=== PATIENT | female | born 1990 | race Caucasian/White ===

== ENCOUNTER 2018-11-26 23:18 | Emergency (ER) | payer OTHER ==
[~2018-11-26] VITALS: Ht 162.6 cm; Wt 69.2 kg
[~2018-11-26 23:18] MED LIST: NAPR-985 PO
[2018-11-26 23:30] VITALS: Ht 162.6 cm; Wt 69.2 kg
--- NOTE | 2018-11-27 01:40 | ERD ---
ER Documentation Chief Complaint Chief Complaint C/O RT KNEE PAIN S/P FALL X3 DAYS AGO HPI This is a previously healthy 28-year-old female presenting to the emergency department complaining of right knee pain which is moderate to severe and worse with movement for the past 3 days after fall. She states she twisted her right leg causing her to fall on the right knee. She denies any head injury or loss of consciousness. She took no medication for relief of symptoms. ROS All systems reviewed and are negative except as per history of present illness. Medications Home Meds Active Scripts Naproxen* (Naprosyn*) 500 Mg Tablet, 500 MG PO BID PRN for PAIN AND/OR INFLAMMATION, #30 TAB Prov:RAYMON GOMEZ PA-C 11/27/18 Allergies Allergies: Coded Allergies: No Known Allergy (Unverified , 11/26/18) PMhx/Soc Medical and Surgical Hx: pt denies Medical Hx, pt denies Surgical Hx Hx Alcohol Use: No Hx Substance Use: No Hx Tobacco Use: No Smoking Status: Never smoker FmHx Family History: No diabetes Physical Exam Vitals Vital Signs Date Temp Pulse Resp B/P (MAP) Pulse Ox O2 O2 Flow FiO2 Time Delivery Rate 11/26/18 98.0 79 19 145/68 99 23:30 (93) Physical Exam Const: No acute distress Head: Atraumatic Eyes: Normal Conjunctiva ENT: Normal External Ears, Nose and Mouth. Neck: Full range of motion. No meningismus. Resp: No respiratory distress. Skin: No petechiae or rashes Back: No midline or flank tenderness Ext: There is full range of motion of the right knee. No tenderness palpation of the right knee. No obvious joint effusion. No erythema or warmth. Neur: Awake and alert Psych: Normal Mood and Affect Procedures/MDM 28-year-old female presenting to the emergency department complaining of right knee pain after injury. Physical examination and x-ray showed no evidence of fracture or significant ligamental or tendon injury. Patient was advised to follow-up with orthopedic physician within 24 to 48 hours for further testing and treatment if required. Patient is otherwise stable for discharge and close follow-up with her primary care physician. She was advised to return to the department immediately for any new or concerning or worsening symptoms. Patient required knee immobilizer for immobilization of possible occult fracture. She was given crutches with training.Splint Assessment: Neurovascularly intact post splint placement with good fit. Patient's extremity symptoms have stabilized while they have been evaluated in the department and are appropriate for outpatient follow up. No evidence of compartment syndrome, neurologic injury, vascular injury, open joint, open fracture, tendon laceration, or foreign body. Patient's blood pressure was elevated (>120/80) but appears stable without evidence of hypertension emergency or urgency. The patient is to follow-up and pursue outpatient monitoring and therapy with their primary care physician within 1 week and return immediately if they have any new, worsening, or concerning symptoms. Departure Diagnosis: Primary Impression: Right knee injury Encounter type: initial encounter Qualified Codes: S89.91XA - Unspecified injury of right lower leg, initial encounter Condition: Fair Patient Instructions: Knee Pain, Meniscus Injury (Possible) Referrals: [facility] 7 a.m.- 11 p.m. Every Day of the Week NO APPOINTMENT OR AUTHORIZATION NEEDED [facility] Hours: Sun-Sun 9:00 AM - 5:00 PM Additional Instructions: Call your primary care doctor TOMORROW for an appointment during the next 1-2 days.See the doctor sooner or return here if your condition worsens before your appointment time. RAYMON GOMEZ PA-C Nov 27, 2018 01:40
== END 2018-11-27 01:59 | disposition home or self-care (01) ==
LOC: FTE 23:18
DX: S89.91XA Unspecified injury of right lower leg, initial encounter (principal); X50.1XXA Overexertion from prolonged static or awkward postures, initial encounter; Y92.9 Unspecified place or not applicable
CPT/HCPCS: 29505; 73562; Z7502; Z7610